=== PATIENT | female | born 1985 | race Asian ===

== ENCOUNTER 2023-06-21 10:45 | Day surgery (SDC) | payer OTHER ==
[~2023-06-21] VITALS: Ht 165.1 cm; Wt 63.5 kg
[~2023-06-21 10:45] MED LIST: DEXMEDETOMIDINE HCL IN SODIUM 4 MCG/ML INJ INJ ONE
[2023-06-21] MEDS ORDERED: PROPOFOL 10MG/ML 20ML INJ IV ONE (16:09)
[2023-06-21] MEDS ORDERED: LIDOCAINE HCL 2 % INJ INJ ONE (16:09)
== END 2023-06-21 11:55 | disposition home or self-care (01) ==
LOC: OR 10:45
PROVIDERS: ATTEND Internal Medicine Gastroenterology
DX: K20.90 Esophagitis, unspecified without bleeding (principal)
CPT/HCPCS: J2001; J2704